=== PATIENT | female | born 1955 | race Hispanic/Latino ===

== ENCOUNTER → 2018-02-21 | Outpatient (CLI) | payer MEDICARE | END | disposition home or self-care (01) | LOC: RAH 08:49 | PROVIDERS: ATTEND Internal Medicine Gastroenterology | DX: R10.12 Left upper quadrant pain (principal) | CPT/HCPCS: 76700 ==

== ENCOUNTER 2023-12-25 14:58 | Emergency (ER) | payer OTHER, MEDICARE ==
[~2023-12-25] VITALS: Ht 162.6 cm; Wt 72.6 kg
[2023-12-25] MEDS: LORazepam 1 MG TABLET PO ONE (16:36)
[2023-12-25 17:11] VITALS: BP 137/86; PULSE 82; RESP 18; O2SAT 98
[2023-12-25] MEDS ORDERED: CYCL10TA16 PO (17:36)
[2023-12-25] MEDS ORDERED: IBUP-2070 PO (17:36)
== END 2023-12-25 17:58 | disposition home or self-care (01) ==
LOC: EDH 14:58
DX: S39.012A Strain of muscle, fascia and tendon of lower back, initial encounter (principal); V89.2XXA Person injured in unspecified motor-vehicle accident, traffic, initial encounter; Y93.I9 Activity, other involving external motion; Y92.488 Other paved roadways as the place of occurrence of the external cause; Y99.8 Other external cause status
CPT/HCPCS: 70450; 71045; 72125; 93005